=== PATIENT | male | born 1985 | race Caucasian/White ===

== ENCOUNTER 2023-04-08 18:47 | Emergency (ER) | payer MEDICAID ==
[~2023-04-08] VITALS: Ht 182.9 cm; Wt 77.1 kg
[2023-04-08 19:29] VITALS: PULSE 88; RESP 18; TEMP 99; O2SAT 96
[2023-04-08] MEDS ORDERED: MAG HYDROX/AL HYDROX/SIMETH 30 ML, DICYCLOMINE HCL 20 MG, LIDOCAINE VISCOUS 2% 15ML (PO... PO ONE ×3 (19:45)
[2023-04-08] MEDS ORDERED: FLUO15OI4 TP (20:00)
[2023-04-08] MEDS ORDERED: ACYC400T19 PO (20:00)
[2023-04-08] MEDS ORDERED: IBUP-1969 PO (20:00)
[2023-04-08 20:07] VITALS: PULSE 88; RESP 18; TEMP 99; O2SAT 97
== END 2023-04-08 20:08 | disposition home or self-care (01) ==
LOC: SED 18:47
DX: K12.1 Other forms of stomatitis (principal); K13.79 Other lesions of oral mucosa; R07.0 Pain in throat; R11.10 Vomiting, unspecified; F15.10 Other stimulant abuse, uncomplicated; Z79.899 Other long term (current) drug therapy
CPT/HCPCS: 99283; J2001